=== PATIENT | male | born 1940 | race Caucasian/White ===

== ENCOUNTER → 2017-11-15 | Day surgery (SDC) | payer MEDICARE ==
[~2017-11-15] VITALS: Ht 182.9 cm; Wt 74.5 kg
[~2017-11-15] MED LIST: ATEN100T PO; CART120C PO; HYALURONIDASE/LIDOCAINE/BUPIVACAINE 5 ML SYR RIGHT EYE ONE; HYCOS PO; IPRA0.06 INH; LACTATED RINGER'S 1000 ML IV PRN; LEVA1.25 PO; LIDOCAINE HCL 1% PF 30 ML VIAL ONE; LORA0.5T PO; OMEP20TA93 PO; OXYC1TAB63 PO; PROPARACAINE HCL 0.5% OPHT SOLN 15 ML BTL RIGHT EYE ONE; PROPOFOL 200 MG/20 ML AMP ONE; SIMV20TA PO; SODIUM CHLORID 0.9% 500 ML INJ 500 ML ONE; TOBRAMYCIN/DEXAMETHASONE OPTH OINT 3.5 GM TUBE ONE; WARF-58 PO; ZOLP10TA3 PO
[2017-11-15 07:04] VITALS: PULSE 90
[2017-11-15] MEDS: CYCLOPENTOLATE HCL 1% OPHT SOLN 2 ML BTL RIGHT EYE SCH ×4 (07:10→07:25)
[2017-11-15] MEDS: FLURBIPROFEN 0.03% OPHT SOLN 2.5 ML BTL RIGHT EYE SCH ×4 (07:10→07:25)
[2017-11-15] MEDS: PHENYLEPHRINE HCL 10% OPTH SOLN 5 ML BTL RIGHT EYE SCH ×4 (07:10→07:25)
[2017-11-15] MEDS: TROPICAMIDE 1% OPHT SOLN 15 ML BTL RIGHT EYE SCH ×4 (07:10→07:25)
[2017-11-15 07:42] VITALS: PULSE 113
[2017-11-15 08:47] VITALS: TEMP 97.9
[2017-11-15 09:07] VITALS: BP 134/77; PULSE 89; RESP 16; O2SAT 96
--- NOTE | 2017-11-15 10:37 | MP ---
cc: SB OH MD [facility] #[id number] DATE OF SURGERY 11/15/2017 PREOPERATIVE DIAGNOSIS Visually significant cataract right eye. POSTOPERATIVE DIAGNOSIS Visually significant cataract right eye. OPERATION Phacoemulsification with posterior chamber lens implantation, right eye. SURGEON Sb Oh MD ANESTHESIA Retrobulbar with MAC. COMPLICATIONS None PROCEDURE After informed consent was obtained, the patient was brought into the operative suite and placed on appropriate monitors by the Anesthesia Service. The patient had received a prior retrobulbar injection of local anesthetic by the Anesthesia Service in the holding area. The patient's operative eye was then prepped and draped in the usual sterile fashion. A wire lid speculum was placed. A paracentesis incision was made in the peripheral cornea with a 1 mm kurt keratome. The anterior chamber was filled with viscoelastic. The anterior chamber was then entered through a stepped, clear corneal incision using a sharp 3 mm kurt keratome. A circular tear capsulorrhexis was then made with a bent needle cystitome. Following hydrodissection of the lens nucleus with balanced saline, phacoemulsification of the nucleus was performed using a modified chopping technique. The remaining cortex was removed with irrigation/aspiration. The prior two procedures were both performed using the handpieces of the [employer] phaco unit. The capsular bag was then filled with viscoelastic. The intraocular lens was then injected into the capsular bag and positioned. The type of intraocular lens and its power can be found elsewhere in this chart. The remaining viscoelastic was then removed from the anterior chamber with the IA handpiece. The anterior chamber was reformed with balanced saline. The wound was then closed securely with stromal hydration. It was found to be watertight to an intraocular pressure of at least 30 mmHg by palpation. A small amount of balanced salt solution was then removed through the paracentesis site and the intraocular pressure at the end of the case was approximately 20 by palpation. All drapes were then removed. TobraDex ointment was then placed in the eye, which was closed beneath a semi-pressure patch dressing. The patient tolerated this procedure well and left the operating room awake and alert. The patient is to follow-up in my office in the morning. ADDENDUM Due to the patient's poorly dilating pupil, a Malyugin ring was used to promote and maintain pupillary mydriasis during phacoemulsification and lens implantation. MD LETTY Gunter/GEOVANI /9:45 AM /10:09 AM
== END | disposition home or self-care (01) ==
LOC: PHSDC 06:15
PROVIDERS: ATTEND Optometrist Occupational Vision
DX: H26.9 Unspecified cataract (principal)
CPT/HCPCS: 00142; 66984; J7040; V2632

== ENCOUNTER → 2017-12-20 | Day surgery (SDC) | payer MEDICARE ==
[~2017-12-20] VITALS: Ht 185.4 cm; Wt 73.0 kg
[~2017-12-20] MED LIST changes: +ACETAMINOPHEN 500 MG CPLT ONE; +ALBU.5I NEB; -ATEN100T PO; +CHLORHEXIDINE GLUCONATE 2 % 1 PACK (2 CLOTHS) TOPICAL PRN; +HYALURONIDASE/LIDOCAINE/BUPIVACAINE 5 ML SYR LEFT EYE ONE; -HYALURONIDASE/LIDOCAINE/BUPIVACAINE 5 ML SYR RIGHT EYE ONE; -LEVA1.25 PO; +LEVA1.257 NEB; +MEDR4PAK PO; +METOPROLOL TARTRATE 25 MG TAB PO PRN; -OMEP20TA93 PO; +PROPARACAINE HCL 0.5% OPHT SOLN 15 ML BTL LEFT EYE ONE; -PROPARACAINE HCL 0.5% OPHT SOLN 15 ML BTL RIGHT EYE ONE; -SIMV20TA PO; -SODIUM CHLORID 0.9% 500 ML INJ 500 ML ONE; +SODIUM CHLORID 0.9% 500 ML IV PRN; +TIOT12.9 INH
[2017-12-20 07:53] VITALS: PULSE 132
[2017-12-20] MEDS: FLURBIPROFEN 0.03% OPHT SOLN 2.5 ML BTL LEFT EYE SCH ×4 (07:56→08:11)
[2017-12-20] MEDS: PHENYLEPHRINE HCL 10% OPTH SOLN 5 ML BTL LEFT EYE SCH ×4 (07:56→08:11)
[2017-12-20] MEDS: TROPICAMIDE 1% OPHT SOLN 15 ML BTL LEFT EYE SCH ×4 (07:56→08:11)
[2017-12-20] MEDS: CYCLOPENTOLATE HCL 1% OPHT SOLN 2 ML BTL LEFT EYE SCH ×4 (07:56→08:11)
[2017-12-20 08:29] VITALS: PULSE 100
[2017-12-20 09:50] VITALS: TEMP 97.2
[2017-12-20 10:10] VITALS: BP 137/91; PULSE 93; RESP 14; O2SAT 99
--- NOTE | 2017-12-21 11:59 | MP ---
cc: SB OH M.D. [facility] NUMBER: [id number] DATE OF SURGERY: 12/21/2017 PREOPERATIVE DIAGNOSIS: Visually significant cataract left eye. POSTOPERATIVE DIAGNOSIS: Visually significant cataract left eye. OPERATION: Phacoemulsification with posterior chamber lens implantation, left eye. SURGEON: Sb Oh MD ANESTHESIA: Retrobulbar with MAC. COMPLICATIONS: None. PROCEDURE: After informed consent was obtained, the patient was brought into the operative suite and placed on appropriate monitors by the Anesthesia Service. The patient had received a prior retrobulbar injection of local anesthetic by the Anesthesia Service in the holding area. The patient's operative eye was then prepped and draped in the usual sterile fashion. A wire lid speculum was placed. A paracentesis incision was made in the peripheral cornea with a 1 mm kurt keratome. The anterior chamber was filled with viscoelastic. The anterior chamber was then entered through a stepped, clear corneal incision using a sharp 3 mm kurt keratome. A circular tear capsulorrhexis was then made with a bent needle cystitome. Following hydrodissection of the lens nucleus with balanced saline, phaco-emulsification of the nucleus was performed using a modified chopping technique. The remaining cortex was removed with irrigation/aspiration. The prior two procedures were both performed using the handpieces of the [employer] phaco unit. The capsular bag was then filled with viscoelastic. The intraocular lens was then injected into the capsular bag and positioned. The type of intraocular lens and its power can be found elsewhere in this chart. The remaining viscoelastic was then removed from the anterior chamber with the IA handpiece. The anterior chamber was reformed with balanced saline. The wound was then closed securely with stromal hydration. It was found to be watertight to an intraocular pressure of at least 30 mmHg by palpation. A small amount of balanced salt solution was then removed through the paracentesis site and the intraocular pressure at the end of the case was approximately 20 by palpation. All drapes were then removed. TobraDex ointment was then placed in the eye, which was closed beneath a semi-pressure patch dressing. The patient tolerated this procedure well and left the operating room awake and alert. The patient is to follow-up in my office in the morning. ADDENDUM: Due to the patients poorly dilating pupil, a Malyugin ring was used to promote and maintain adequate pupillary mydriasis for phaco emulsification and lens implantation. MD LETTY Gunter/isamar /11:28 AM /11:36 AM
== END | disposition home or self-care (01) ==
LOC: PHSDC 07:00
PROVIDERS: ATTEND Optometrist Occupational Vision
DX: H25.812 Combined forms of age-related cataract, left eye (principal); H57.04 Mydriasis; J44.9 Chronic obstructive pulmonary disease, unspecified
CPT/HCPCS: 00142; 66984; J7040; V2632